=== PATIENT | male | born 1980 | race African-American/Black ===

== ENCOUNTER 2022-04-09 12:50 | Emergency (ER) | payer OTHER, MEDICAID, SELFPAY ==
--- NOTE | 2022-04-09 13:03 | XR_ITS ---
FINAL REPORT CLINICAL HISTORY: trauma to L hand, 5th distal digit FINDINGS: AP, oblique, and lateral views of the left hand were obtained. There is no prior exam for comparison. There may be a nondisplaced fracture through the base of the middle phalanx of the 5th digit on one view only. There is no dislocation. The joint spaces are preserved. The soft tissues are normal. IMPRESSION: Questionable nondisplaced fracture through the base of the 5th middle phalanx seen on one view only. Reviewed, Interpreted and Dictated by Laquita Kirk MD Transcribed by Partha Rhodes Authenticated and [facility]
[2022-04-09 13:09] VITALS: BP 123/65; PULSE 79; RESP 20; TEMP 37; O2SAT 99; BMI 24.1
--- NOTE | 2022-04-09 13:22 | HMH.EDGENADL ---
Discharge Plan Disposition Patient Disposition: Home, Self-Care Condition: Good Prescriptions Prescriptions: New cephalexin 500 mg capsule 500 mg PO TID 7 Days Qty: 21 0RF naproxen 500 mg tablet 500 mg PO Q8H PRN (Reason: pain) Qty: 20 0RF Referrals Follow up/Referrals: Provider,Referral, MD [Primary Care Provider] - See instructions Activity Restrictions/Add. Instructions Additional Instructions/Restrictions: Please follow up in [facility] this with Dr. Gilbert. Your appointment is at [facility] at 09:40am. [address] [facility] [facility] [address], [facility] [place] [address]. 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 Keep your wound clean and dry. Dress it with nonstick gauze provided to you. Keep your splint on. Return to the ER for any new or worsening symptoms. Clinical Impressions Clinical Impression: Laceration of finger of left hand Qualifiers: Encounter type: initial encounter Finger: little finger Damage to nail status: without damage Foreign body presence: without foreign body Qualified Code(s): S61.217A - Laceration without foreign body of left little finger without damage to nail, initial encounter Open fracture of finger of left hand Qualifiers: Encounter type: initial encounter Finger: little finger Phalanx: middle Fracture alignment: nondisplaced Qualified Code(s): S62.657B - Nondisplaced fracture of middle phalanx of left little finger, initial encounter for open fracture Instructions Patient Instructions: DI for Laceration Repair, DI for Finger Fracture Discharge ED Provider: Janel Andre General Adult HPI General Chief complaint: Wound/Laceration Stated complaint: finger lac Time Seen by Provider: 04/09/22 12:51 Mode of Arrival: EMS Source of Information: Patient Limitations: No Limitations Description of Symptoms (Recalled from ER Triage Doc. by RN): Pt reports working on garage door and bracket or spring broke off striking his left fifth digit with soft tissue avulsion History of Present Illness HPI narrative: This patient is a 42-year-old male presents to the emergency department for evaluation of a left hand injury. Patient reports that he was working on a garage door bracket/spring broke off and hit him in the left fifth digit. He felt immediate pain. No other injuries noted. He is unsure when his last tetanus shot was. He denies any issues with range of motion of his left fifth digit. He is not on any anticoagulation. No other concerns noted at this time. Related Data Previous Rx's Medication Instructions Recorded cephalexin 500 mg capsule 500 mg PO TID 7 days #21 caps 04/09/22 naproxen 500 mg tablet 500 mg PO Q8H PRN pain #20 tabs 04/09/22 Allergies Allergy/AdvReac Type Severity Reaction Status Date / Time No Known Allergies Allergy Verified 04/09/22 13:32 [facility] Disclaimer: The information contained in this section may have been updated after the patient was seen, as this information can be updated by other users. Social History Smoking Status: Never smoker alcohol intake: never current occupational status: employed Travel in the last 8 weeks: None ROS Obtained: Yes All systems reviewed & no additional complaints except as documented 14 point review of systems obtained and negative except as mentioned in HPI. Physical Exam General General appearance: alert and in no apparent distress Head Head exam: atraumatic and normocephalic Eye Eye exam: Present normal appearance, PERRL and EOMI ENT ENT exam: Present normal exam, normal oropharynx and mucous membranes moist Neck Neck exam: Present normal inspection, full ROM and trachea midline Chest Chest inspection: Present normal inspection and symmetric chest wall rise; Absent tenderness Respiratory Respiratory exam: Present normal lung sounds bilaterally; Abse
[2022-04-09 15:48] VITALS: BP 109/76; PULSE 64; RESP 12; TEMP 36.9; O2SAT 98
== END 2022-04-09 15:51 | disposition home or self-care (01) ==
PROVIDERS: Emergency Provider Emergency Medicine
DX: S61.217A Laceration without foreign body of left little finger without damage to nail, initial encounter (principal); S62.657A Nondisplaced fracture of middle phalanx of left little finger, initial encounter for closed fracture; W22.8XXA Striking against or struck by other objects, initial encounter; Z23 Encounter for immunization
CPT/HCPCS: 12002; 29130; 73130; 90471; 90715; 96374; 99284